=== PATIENT | female | born 1955 | race Caucasian/White ===

== ENCOUNTER 2023-11-08 16:07 | Outpatient (RCR) | payer OTHER, SELFPAY | END 2023-11-08 23:59 | disposition home or self-care (01) | LOC: RPT 16:07 | PROVIDERS: ATTENDING PHYSICIAN Obstetrics & Gynecology; PRIMARYCARE PHYSICIAN Internal Medicine | DX: M62.89 Other specified disorders of muscle (principal); R15.9 Full incontinence of feces; N81.10 Cystocele, unspecified; N81.6 Rectocele; Z73.6 Limitation of activities due to disability; M62.81 Muscle weakness (generalized); R27.8 Other lack of coordination | CPT/HCPCS: 97014; 97112; 97530 ==

== ENCOUNTER 2023-12-08 11:13 | Outpatient (RCR) | payer OTHER, SELFPAY | END 2023-12-09 07:47 | disposition home or self-care (01) | LOC: RPT 11:13 | PROVIDERS: ATTENDING PHYSICIAN Obstetrics & Gynecology; PRIMARYCARE PHYSICIAN Internal Medicine | DX: M62.89 Other specified disorders of muscle (principal); R15.9 Full incontinence of feces; N81.10 Cystocele, unspecified; N81.6 Rectocele; M62.81 Muscle weakness (generalized); R27.8 Other lack of coordination | CPT/HCPCS: 97014; 97530 ==

== ENCOUNTER → 2024-05-18 06:50 | Outpatient (REF) | payer OTHER, SELFPAY | LOC: MRI 06:50 | PROVIDERS: ATTENDING PHYSICIAN Physical Medicine & Rehabilitation | DX: M47.812 Spondylosis without myelopathy or radiculopathy, cervical region (principal); M54.2 Cervicalgia; M48.02 Spinal stenosis, cervical region; M54.12 Radiculopathy, cervical region | CPT/HCPCS: 72141 ==

== ENCOUNTER → 2024-09-02 13:59 | Outpatient (REF) | payer OTHER, SELFPAY | LOC: RAD 13:59 | PROVIDERS: ATTENDING PHYSICIAN Physician Assistant Medical | DX: M25.562 Pain in left knee (principal) | CPT/HCPCS: 73564 ==

== ENCOUNTER → 2024-09-25 10:46 | Outpatient (REF) | payer OTHER, SELFPAY | LOC: WDC 10:46 | PROVIDERS: ATTENDING PHYSICIAN Obstetrics & Gynecology; FAMILY PHYSICIAN Internal Medicine | DX: Z12.31 Encounter for screening mammogram for malignant neoplasm of breast (principal) | CPT/HCPCS: 77063; 77067 ==

== ENCOUNTER → 2024-10-13 09:03 | Outpatient (REF) | payer OTHER, SELFPAY | LOC: PAVMRI 09:03 | PROVIDERS: ATTENDING PHYSICIAN Specialist; FAMILY PHYSICIAN Internal Medicine | DX: M25.562 Pain in left knee (principal) | CPT/HCPCS: 73721 ==

== ENCOUNTER 2024-12-08 06:41 | Day surgery (SDC) | payer OTHER, SELFPAY ==
[2024-11-24 11:02] LABS: Hematocrit 40.6 % (37.0-47.0); Hemoglobin 13.8 g/dL (12.0-16.0); Mean Corpuscular Hgb 30.1 pg (27.0-31.0); Mean Corpuscular Volume 88.6 fL (81.0-99.0); Mean Platelet Volume 9.2 fL (7.4-10.4); Platelet Count 204 10^3/uL (130-400); Red Blood Cell Count 4.58 10^6/uL (4.20-5.40); Red Cell Dist. Width 12.1 % (11.5-14.5); White Blood Cell Count 5.4 10^3/uL (4.8-10.8)
[2024-11-24 13:21] VITALS: BMI 27.3
[2024-12-08] VITALS (11 sets, daily range): BP systolic 111–177; BP diastolic 61–78; BMI 27.3
[2024-12-08] MEDS: CELEBREX 200 MG PO (11:53)
[2024-12-08] MEDS: TYLENOL 1000 MG PO (11:53)
[2024-12-08] MEDS: NORMOSOL-R/PLASMALYTE-A 1000 IV (11:53)
[2024-12-08] MEDS: TRANSDERM-SCOP 1 PATCH TRANSDERM (12:35)
[2024-12-08] MEDS: DILAUDID 0.25 MG IV (15:34)
== END 2024-12-08 17:17 | disposition home or self-care (01) ==
LOC: SDS 06:41
PROVIDERS: ATTENDING PHYSICIAN Specialist; FAMILY PHYSICIAN Student in an Organized Health Care Education/Training Program
DX: S83.232A Complex tear of medial meniscus, current injury, left knee, initial encounter (principal); M94.262 Chondromalacia, left knee; X58.XXXA Exposure to other specified factors, initial encounter; M25.562 Pain in left knee
CPT/HCPCS: 29881; 36415; 85027; 93005

== ENCOUNTER 2024-12-25 06:16 | Day surgery (SDC) | payer OTHER, SELFPAY | END 2024-12-25 10:57 | disposition home or self-care (01) | LOC: GI 06:16 | PROVIDERS: ATTENDING PHYSICIAN Internal Medicine | DX: K57.30 Diverticulosis of large intestine without perforation or abscess without bleeding (principal); K64.8 Other hemorrhoids; R19.7 Diarrhea, unspecified | CPT/HCPCS: 45380; 88305 ==

== ENCOUNTER 2025-05-15 06:17 | Day surgery (SDC) | payer OTHER, SELFPAY ==
[2025-05-15 13:35] VITALS: BMI 27.6
[2025-05-15 13:40] VITALS: BP 167/71
[2025-05-15 13:45] VITALS: BMI 27.6
[2025-05-15 13:55] VITALS: BP 167/71
--- NOTE | 2025-05-15 15:07 | OR.RPT ---
Operative Report
Operative Report
DATE OF OPERATION: 05/15/2025
SURGEON: Geoffrey Ibarra MD
PREOPERATIVE DIAGNOSIS: Fecal incontinence
POSTOPERATIVE DIAGNOSIS: Fecal incontinence
OPERATION: Flexible sigmoidoscopy, endoanal ultrasound
ASSISTANTS:
1. None
ANESTHESIA: Propofol sedation
FINDINGS:
1. Flexible sigmoidoscopy reported separately; advanced to 40 cm; demonstrated diverticulosis of the sigmoid colon as well as patchy erythema in the rectum; biopsies taken in the proximal and distal rectum
2. Endoanal ultrasound evaluation of anal canal revealed a perineal body of 10.1 mm; no obvious internal or external anal sphincter defects
SPECIMENS:
1. None
COMPLICATIONS: None
INDICATIONS: The patient is a 70-year-old female who has longstanding fecal incontinence. She presents for flexible sigmoidoscopy with endoanal ultrasound to evaluate for any anal sphincter defects. The procedure was discussed with the patient in
detail, including the risks, benefits and alternatives. Risks described included, but not limited to, bloating, bleeding, bowel perforation, inability to complete the procedure and missed lesions. The patient understood and agreed to proceed.
PROCEDURE IN DETAIL: The patient was taken to the endoscopy room and placed left lateral position. A timeout was performed verifying the correct patient, procedure, positioning and special equipment. Sedation was induced without complication.
I began the procedure by performing a flexible sigmoidoscopy. This is reported separately. I was able to advance to the mid sigmoid colon, about 40 cm from the anal verge. The prep was adequate. There were scattered diverticula within the
sigmoid colon. There was patchy erythema in the entire rectum. Biopsies were taken with giant forceps from the proximal rectum and distal rectum. The exam was otherwise normal. Retroflexion was not attempted.
I then began the endoanal ultrasound. I inserted the rigid proctoscope sheath with obturator, then removed the obturator. I inserted the lubricated endoanal ultrasound until I felt resistance. I pulled the sheath back and clipped it into place.
I inflated the balloon until the lumen was flatly juxtaposed to the balloon. I evaluated the distal rectum and anal canal by moving the crystal proximally and distally. I identified the levator ani sling and marked this as the proximal anal canal.
I identified the mid anal canal and marked this. There was no obvious defects in the internal or external anal sphincter at this level. I advanced the crystal and identified the distal anal canal and marked this. There was no obvious sphincter
defect in the internal or external anal sphincter. I then inserted a gloved finger in the distal vaginal canal and marked out the perineal body, which measured 10.1 mm. The balloon was then desufflated and the sheath with endoanal ultrasound was
removed.
At this point, the procedure was complete. The patient was awoken without complication. The patient tolerated the procedure well and was transferred to the recovery room in stable condition.
DICTATED BY: Geoffrey Ibarra MD
[2025-05-15 15:09] VITALS: BP 133/71
[2025-05-15 15:15] VITALS: BP 126/63
[2025-05-15 15:30] VITALS: BP 136/63
== END 2025-05-15 15:44 | disposition home or self-care (01) ==
LOC: SDS 06:17
PROVIDERS: ATTENDING PHYSICIAN Surgery
DX: R15.9 Full incontinence of feces (principal); K57.30 Diverticulosis of large intestine without perforation or abscess without bleeding; K62.89 Other specified diseases of anus and rectum
CPT/HCPCS: 45331; 45341; 88305

== ENCOUNTER → 2025-06-12 12:10 | Outpatient (REF) | payer OTHER, SELFPAY | LOC: PAVMRI 12:10 | PROVIDERS: ATTENDING PHYSICIAN Specialist; FAMILY PHYSICIAN Internal Medicine | DX: M25.562 Pain in left knee (principal) | CPT/HCPCS: 73721 ==

== ENCOUNTER → 2025-06-21 11:21 | Outpatient (REF) | payer OTHER, SELFPAY ==
[2025-06-21 12:32] LABS: Hematocrit 39.6 % (37.0-47.0); Hemoglobin 13.5 g/dL (12.0-16.0); Mean Corp Hgb Conc. 34.1 g/dL (33.0-37.0); Mean Corpuscular Volume 89.4 fL (81.0-99.0); Nucleated Red Blood Cells % 0 %; Platelet Count 202 10^3/uL (130-400); Red Cell Dist. Width 11.8 % (11.5-14.5)
[2025-06-21 13:11] LABS: Blood Urea Nitrogen 20 mg/dl (7-17); Calcium 10.1 mg/dl (8.4-10.2); Carbon Dioxide 27 mmol/L (22-30); Chloride 105 mmol/L (98-107); Glucose 93 mg/dl (70-99); Potassium 5.1 mmol/L (3.5-5.1); Sodium 139 mmol/L (135-145); eGFR > 60.00
== END ==
LOC: REG 11:21
PROVIDERS: ATTENDING PHYSICIAN Specialist
DX: Z01.818 Encounter for other preprocedural examination (principal)
CPT/HCPCS: 36415; 80048; 85025; 93005

== ENCOUNTER 2025-08-13 07:10 | Outpatient (RCR) | payer OTHER, SELFPAY | END 2025-08-13 23:59 | disposition home or self-care (01) | LOC: RPT 07:10 | PROVIDERS: ATTENDING PHYSICIAN Surgery; FAMILY PHYSICIAN Internal Medicine | DX: R15.9 Full incontinence of feces (principal); Z73.6 Limitation of activities due to disability | CPT/HCPCS: 97163; 97530 ==

== ENCOUNTER 2025-09-20 10:11 | Outpatient (RCR) | payer OTHER, SELFPAY | END 2025-09-20 23:59 | disposition home or self-care (01) | LOC: RPT 10:11 | PROVIDERS: ATTENDING PHYSICIAN Surgery; FAMILY PHYSICIAN Internal Medicine | DX: R15.9 Full incontinence of feces (principal); Z73.6 Limitation of activities due to disability | CPT/HCPCS: 97014; 97112; 97140; 97530 ==

== ENCOUNTER → 2025-09-26 13:15 | Outpatient (REF) | payer OTHER, SELFPAY | LOC: WDC 13:15 | PROVIDERS: ATTENDING PHYSICIAN Obstetrics & Gynecology; FAMILY PHYSICIAN Internal Medicine | DX: Z12.31 Encounter for screening mammogram for malignant neoplasm of breast (principal) | CPT/HCPCS: 77063; 77067 ==

== ENCOUNTER → 2025-09-28 13:16 | Outpatient (REF) | payer OTHER, SELFPAY | LOC: RAD 13:16 | PROVIDERS: ATTENDING PHYSICIAN Student in an Organized Health Care Education/Training Program | DX: R06.02 Shortness of breath (principal) | CPT/HCPCS: 71046 ==

== ENCOUNTER 2025-10-16 09:39 | Outpatient (RCR) | payer OTHER, SELFPAY | END 2025-10-16 23:59 | disposition home or self-care (01) | LOC: RPT 09:39 | PROVIDERS: ATTENDING PHYSICIAN Surgery; FAMILY PHYSICIAN Internal Medicine | DX: R15.9 Full incontinence of feces (principal); Z73.6 Limitation of activities due to disability | CPT/HCPCS: 97014; 97110; 97112; 97530 ==

== ENCOUNTER 2025-11-20 08:40 | Outpatient (RCR) | payer OTHER, SELFPAY | END 2025-11-20 23:59 | disposition home or self-care (01) | LOC: RPT 08:40 | PROVIDERS: ATTENDING PHYSICIAN Surgery; FAMILY PHYSICIAN Internal Medicine | DX: R15.9 Full incontinence of feces (principal); Z73.6 Limitation of activities due to disability | CPT/HCPCS: 97014; 97112; 97530 ==